=== PATIENT | male | born 1950 | race Caucasian/White ===

== ENCOUNTER 2021-03-02 12:52 | Outpatient (RCR) | payer MEDICARE, SELFPAY | END 2021-03-21 23:59 | disposition home or self-care (01) | LOC: SPT 12:52 | PROVIDERS: PCP Internal Medicine; Referring Provider Nurse Practitioner Family; Visit Provider Nurse Practitioner Family | DX: M54.2 Cervicalgia (principal) | CPT/HCPCS: 97110; 97161 ==